=== PATIENT | male | born 1985 | race Caucasian/White ===

== ENCOUNTER 2019-03-18 19:45 | Emergency (ER) | payer BC, OTHER ==
--- NOTE | 2019-03-18 20:09 | EDM.PDOC ---
ED HPI GENERAL MEDICAL PROBLEM - General Chief Complaint: Body Fluid Exposure Stated Complaint: EXPOSURE Time Seen by Provider: 03/18/19 19:55 Source of Information: Reports: Patient History Limitations: Reports: No Limitations - History of Present Illness INITIAL COMMENTS - FREE TEXT/NARRATIVE: HISTORY AND PHYSICAL: History of present illness: Patient is a 34-year-old male who presents to the emergency room with concerns of exposure to body fluids. 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 He is concerned of communicable diseases. Tetanus has been updated within the last 5 years. Review of systems: As per history of present illness and below otherwise all systems reviewed and negative. Past medical history: As per history of present illness and as reviewed below otherwise noncontributory. Surgical history: As per history of present illness and as reviewed below otherwise noncontributory. Social history: See social history for further information Family history: As per history of present illness and as reviewed below otherwise noncontributory. Physical exam: General: Well-developed and well-nourished 34-year-old male. Alert and oriented. Nontoxic appearing and in no acute distress. HEENT: Atraumatic, normocephalic, pupils equal and reactive bilaterally, negative for conjunctival pallor or scleral icterus, mucous membranes moist, trachea midline. No drooling or trismus noted. No meningeal signs. No hot potato voice noted. Lungs: Clear to auscultation, breath sounds equal bilaterally, chest nontender. Heart: S1S2, regular rate and rhythm without overt murmur Abdomen: Soft, nondistended, nontender. Skin: Superficial 1 cm abrasion noted to the left forearm. Otherwise skin is intact, warm, dry. No lesions or rashes noted. Extremities: Atraumatic, moves all extremities per self without difficulty or deficits, negative for cords or calf pain. Neurovascular unremarkable. Neuro: Awake, alert, oriented. Cranial nerves II through XII unremarkable. Cerebellum unremarkable. Motor and sensory unremarkable throughout. Exam nonfocal. Notes: The abrasion was thoroughly cleansed with chlorhexidine. Labs were drawn. Counseling was provided to patient. He is aware that the labs are send outs we do not receive these results immediately. Supportive care measures were reviewed and discussed. Voices understanding and is agreeable to plan of care. Denies any further questions or concerns at this time. Diagnostics: Exposure panel Therapeutics: Wound care Prescription: None Impression: Body fluid exposure Plan: 1. Labs are a send out; we do not get results for 3-5 business days. 2. Follow up with your primary care provider. 3. Return to the ED as needed as discussed. Definitive disposition and diagnosis as appropriate pending reevaluation and review of above. - Related Data Allergies Allergy/AdvReac Type Severity Reaction Status Date / Time No Known Allergies Allergy Verified 03/18/19 20:07 Home Meds: Home Meds . [No Known Home Meds] 04/06/16 [History] Past Medical History - Past Health History Medical/Surgical History: Denies Medical/Surgical History Social & Family History - Family History Family Medical History: Noncontributory ED ROS GENERAL - Review of Systems Review Of Systems: ROS reveals no pertinent complaints other than HPI. ED EXAM, GENERAL - Physical Exam Exam: See Below (See dictation) Course - Vital Signs Last Recorded V/S: Last Vital Signs Temp 97.5 F 03/18/19 20:04 Pulse 93 03/18/19 20:04 Resp BP 128/90 03/18/19 20:04 Pulse Ox 96 03/18/19 20:04 - Orders/Labs/Meds Orders: Active Orders 24 hr Category Date Time Status Communication Order [RC] STAT Care 03/18/19 20:10 Ordered HEPATITIS B SURFACE AB QUANT [CHEM] Routine Lab 03/18/19 20:11 Ordered HEPATITIS B SURFACE AG [CHEM] Routine Lab 03/18/19 20:11 Ordered HEPATITIS C ANTIBODY [CHEM] Routine Lab 03/18/19 20:11 Ordered HIV12 AG/AB 4TH GEN [CHEM] Routine Lab 03/18/19 20:11 Ordered Departure - Departure Time of Disposition: 20:15 Disposition: Home, Self-Care 01 Clinical Impression: Exposure to blood or body fluid - Discharge Information Instructions: Body Fluid Exposure Information Referrals: Maxwell Tenorio MD [Primary Care Provider] - Forms: ED Department Discharge Additional Instructions: The following information is given to patients seen in the emergency department who are being discharged to home. This information is to outline your options for follow-up care. We provide all patients seen in our emergency department with a follow-up referral. The need for follow-up, as well as the timing and circumstances, are variable depending upon the specifics of your emergency department visit. If you don't have a primary care physician on staff, we will provide you with a referral. We always advise you to contact your personal physician following an emergency department visit to inform them of the circumstance of the visit and for follow-up with them and/or the need for any referrals to a consulting specialist. The emergency department will also refer you to a specialist when appropriate. This referral assures that you have the opportunity for follow-up care with a specialist. All of these measure are taken in an effort to provide you with optimal care, which includes your follow-up. Under all circumstances we always encourage you to contact your private physician who remains a resource for coordinating your care. When calling for follow-up care, please make the office aware that this follow-up is from your recent emergency room visit. If for any reason you are refused follow-up, please contact the [facility] Emergency Department at and asked to speak to the emergency department charge nurse. [facility] [address] [place] [id number] [place] [address] 1. Labs are a send out; we do not get results for 3-5 business days. 2. Follow up with your primary care provider. 3. Return to the ED as needed as discussed. - My Orders Last 24 Hours: My Active Orders 03/18/19 20:10 Communication Order [RC] STAT 03/18/19 20:11 HEPATITIS B SURFACE AB QUANT [CHEM] Routine HEPATITIS B SURFACE AG [CHEM] Routine HEPATITIS C ANTIBODY [CHEM] Routine HIV12 AG/AB 4TH GEN [CHEM] Routine - Assessment/Plan Last 24 Hours: My Active Orders 03/18/19 20:10 Communication Order [RC] STAT 03/18/19 20:11 HEPATITIS B SURFACE AB QUANT [CHEM] Routine HEPATITIS B SURFACE AG [CHEM] Routine HEPATITIS C ANTIBODY [CHEM] Routine HIV12 AG/AB 4TH GEN [CHEM] Routine
[2019-03-18 20:50] VITALS: BP 127/91
== END 2019-03-18 20:29 | disposition home or self-care (01) ==
LOC: MW.ED 19:45
DX: S50.812A Abrasion of left forearm, initial encounter (principal); Z77.21 Contact with and (suspected) exposure to potentially hazardous body fluids; W45.8XXA Other foreign body or object entering through skin, initial encounter
CPT/HCPCS: 36415; 86706; 86803; 87340; 87389; 99283

== ENCOUNTER 2019-10-10 21:40 | Emergency (ER) | payer OTHER ==
[2019-10-10 21:58] VITALS: BP 150/84; PULSE 101
--- NOTE | 2019-10-10 22:08 | EDM.PDOC ---
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 That he was exposed to blood on his left arm. Patient has no cuts or abrasions. Patient has no other complaints Onset: Today Duration: Hour(s):, Resolved Prior to Arrival Location: Reports: Upper Extremity, Left Quality: Reports: Other (None) Improves with: Reports: None Worsens with: Reports: None Associated Symptoms: Reports: No Other Symptoms - Related Data Allergies Allergy/AdvReac Type Severity Reaction Status Date / Time No Known Allergies Allergy Verified 10/10/19 21:58 Home Meds: Home Meds . [No Known Home Meds] 04/06/16 [History] Past Medical History - Past Health History Medical/Surgical History: Denies Medical/Surgical History Psychiatric History: Reports: None - Infectious Disease History Infectious Disease History: Reports: Chicken Pox Social & Family History - Family History Family Medical History: Noncontributory - Tobacco Use Smoking Status *Q: Never Smoker - Caffeine Use Caffeine Use: Reports: Coffee, Energy Drinks, Soda, Tea - Recreational Drug Use Recreational Drug Use: No ED ROS GENERAL - Review of Systems Review Of Systems: See Below Constitutional: Reports: No Symptoms HEENT: Reports: No Symptoms Respiratory: Reports: No Symptoms Cardiovascular: Reports: No Symptoms Endocrine: Reports: No Symptoms GI/Abdominal: Reports: No Symptoms : Reports: No Symptoms Musculoskeletal: Reports: No Symptoms Skin: Reports: Other (Exposure to blood) Neurological: Reports: No Symptoms Psychiatric: Reports: No Symptoms Hematologic/Lymphatic: Reports: No Symptoms Immunologic: Reports: No Symptoms ED EXAM, GENERAL - Physical Exam Exam: See Below Exam Limited By: No Limitations General Appearance: Alert, WD/WN, No Apparent Distress Eye Exam: Bilateral Eye: PERRL Ears: Normal External Exam, Normal Canal, Hearing Grossly Normal, Normal TMs Nose: Normal Inspection Throat/Mouth: Normal Inspection Head: Atraumatic Neck: Normal Inspection Respiratory/Chest: No Respiratory Distress Cardiovascular: Normal Peripheral Pulses GI/Abdominal: Normal Bowel Sounds Skin Exam: Warm, Dry, Intact, Normal Color, No Rash Course - Vital Signs Text/Narrative:: 34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 Patient stated his left arm was exposed to blood he has no abrasions swelling or pain to the arm. Patient has no evidence of scratches or swelling. Patient will be get labs for exposure of blood. Patient to follow- up with [employer] for workman's health Last Recorded V/S: Last Vital Signs Temp 97.1 F 10/10/19 21:50 Pulse 101 H 10/10/19 21:50 Resp 18 10/10/19 21:50 BP 150/84 H 10/10/19 21:50 Pulse Ox 96 10/10/19 21:50 - Orders/Labs/Meds Orders: Active Orders 24 hr Category Date Time Status HEPATITIS B SURFACE AB QUANT [CHEM] Routine Lab 10/10/19 21:58 Received HEPATITIS B SURFACE AG [CHEM] Routine Lab 10/10/19 21:58 Received HEPATITIS C ANTIBODY [CHEM] Routine Lab 10/10/19 21:58 Received HIV12 AG/AB 4TH GEN [CHEM] Routine Lab 10/10/19 21:58 Received Departure - Departure Time of Disposition: 22:10 Disposition: Home, Self-Care 01 Condition: Good Clinical Impression: Exposure to blood or body fluid - Discharge Information Referrals: Maxwell Tenorio MD [Primary Care Provider] - Sepsis Event Note - Evaluation Sepsis Screening Result: No Definite Risk - Focused Exam Vital Signs: Vital Signs Temp Pulse Resp BP Pulse Ox 10/10/19 21:50 97.1 F 101 H 18 150/84 H 96 Date Exam was Performed: 10/10/19 Time Exam was Performed: 22:03
== END 2019-10-10 22:20 | disposition home or self-care (01) ==
LOC: MW.ED 21:40
DX: Z77.21 Contact with and (suspected) exposure to potentially hazardous body fluids (principal)
CPT/HCPCS: 36415; 86706; 86803; 87340; 87389; 99282; 99283

== ENCOUNTER 2021-06-24 16:28 | Emergency (ER) | payer OTHER ==
--- NOTE | 2021-06-24 16:45 | EDM.PDOC ---
ED HPI GENERAL MEDICAL PROBLEM - General Chief Complaint: General Stated Complaint: EMS ARRIVAL Time Seen by Provider: 06/24/21 16:29 Source of Information: Reports: Patient History Limitations: Reports: No Limitations - History of Present Illness INITIAL COMMENTS - FREE TEXT/NARRATIVE: HISTORY AND PHYSICAL: History of present illness: Patient is a 36-year-old male who presents to the emergency room with complaints of inhalation exposure of cocaine. 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 Patient states during the arrest the arrested person had been bleeding from a wound, he had a fresh abrasion - concerned he was exposed to blood born pathogen. Patient states he feels slightly lightheaded like he has "drinking a bunch of caffeine". Patient denies any fever, chills, headache, change in vision, syncope or near syncope. Denies any chest pain, back pain, shortness of breath or cough. Denies any abdominal pain, nausea, vomiting, diarrhea, constipation or dysuria. Has not noted any blood in urine or stool. Patient has been eating and drinking appropriately. Review of systems: As per history of present illness and below otherwise all systems reviewed and negative. Past medical history: As per history of present illness and as reviewed below otherwise n oncontributory. Surgical history: As per history of present illness and as reviewed below otherwise noncontributory. Social history: See social history for further information Family history: As per history of present illness and as reviewed below otherwise noncontributory. Physical exam: General: Well developed and well nourished 36-year-old male. Alert and orientated x 3, answering questions appropriately.. Nontoxic in appearance and in no acute distress. Vital signs are stable and have been reviewed by me. Nursing notes were reviewed. HEENT: Atraumatic, normocephalic, pupils equal and reactive bilaterally, negative for conjunctival pallor or scleral icterus, mucous membranes moist, TMs normal bilaterally, throat clear, neck supple, nontender, trachea midline. No drooling or trismus noted. No meningeal signs. No hot potato voice noted. Lungs: Clear to auscultation bilaterally. No wheezes, rales, or rhonchi. Chest nontender. Normal work of breathing, no accessory muscles used. Heart: S1S2, regular rate and rhythm without overt murmur, gallops, or rubs. No JVD. No peripheral edema Abdomen: Soft, nondistended, nontender. Normoactive bowel sounds. Negative for masses or costovertebral tenderness. Skin: Abrasion to right forearm. Remaining skin is intact, warm, dry. No lesions or rashes noted. Hematologic: No petechiae or purpra. Mucosa appropriate color and normal nail bed color and refill. Extremities: Atraumatic, moves all extremities per self without difficulty or deficits, negative for cords or calf pain. Neurovascular unremarkable. Neuro: Awake, alert, oriented. Cranial nerves II through XII unremarkable. Cerebellum unremarkable. Motor and sensory unremarkable throughout. Exam nonfocal. Psychiatric: Mood and affect are appropriate. Normal thought process. Answering questions appropriately. Please note that the patient was seen and evaluated during the 2019 SARS-CoV-2 novel coronavirus pandemic period. Community viral transmission is ongoing at time of this encounter and the emergency department is operating under pandemic response procedures. Medical Decision Making: Patient is a 36-year-old male who presents to the emergency room as he had an e xposure to cocaine at work. He also has an abrasion to his right forearm and the person who was arrested had blood, concerned of blood exposure. He states he is slightly lightheaded, comparing it to having drank a lot of caffeine. States his tetanus is up-to-date. Wound care provided. We will do a blood- borne exposure panel. Patient declines wanting any other evaluation done today. Patient's physical exam is unremarkable with the exception of the abrasion. Vital signs are stable. I have talked with the patient about today's findings, in addition to providing specific details for plan of care. Reassessment at the time of disposition demonstrates that the patient is in no acute distress. The patient is stable for discharge, counseling was provided and we discussed in great detail signs and symptoms that would prompt them to return to the Emergency Department. Medication, follow up and supportive care measures were reviewed and discussed. Voices understanding and is agreeable to plan of care. Denies any further questions or concerns at this time. Diagnostics: Hepatitis panel, HIV Therapeutics: None Prescription: None Impression: Contact with and suspected exposures hazardous to health Blood/body fluid exposure Plan: 1. You were evaluated today on an emergent basis. Your labs take several hours to process, we will call you if there are any concerning findings. Avoid caffeine or any stimulants as this can worsen symptoms. Drink plenty of fluids. 2. You can alternate Tylenol and ibuprofen as needed for pain and fever management. 3. We encourage you to follow up with your primary care provider and/or recommended specialist in the next few days for re-evaluation and further care/management. 4. If your symptoms should worsen, new symptoms develop or any of the signs and symptoms we discussed should arise please return to the emergency room or call 911 (if needed). Definitive disposition and diagnosis as appropriate pending reevaluation and review of above. - Related Data Allergies Allergy/AdvReac Type Severity Reaction Status Date / Time No Known Allergies Allergy Verified 10/10/19 21:58 Home Meds: Home Meds . [No Known Home Meds] 04/06/16 [History] Past Medical History - Past Health History Medical/Surgical History: Denies Medical/Surgical History Psychiatric History: Reports: None - Infectious Disease History Infectious Disease History: Reports: Chicken Pox Social & Family History - Family History Family Medical History: No Pertinent Family History - Caffeine Use Caffeine Use: Reports: Coffee, Energy Drinks, Soda, Tea ED ROS GENERAL - Review of Systems Review Of Systems: Comprehensive ROS is negative, except as noted in HPI. ED EXAM, GENERAL - Physical Exam Exam: See Below (See dictation) Course - Vital Signs Last Recorded V/S: Last Vital Signs Temp 97.2 F 06/24/21 16:46 Pulse 92 06/24/21 16:46 Resp 20 06/24/21 16:46 BP 128/72 06/24/21 16:46 Pulse Ox 95 06/24/21 16:46 - Orders/Labs/Meds Orders: Active Orders 24 hr Category Date Time Status HEPATITIS B SURFACE AB QUANT [CHEM] Routine Lab 06/24/21 16:33 Ordered HEPATITIS B SURFACE AG [CHEM] Routine Lab 06/24/21 16:34 Ordered HEPATITIS C ANTIBODY [CHEM] Routine Lab 06/24/21 16:33 Ordered HIV12 AG/AB 4TH GEN [CHEM] Routine Lab 06/24/21 16:34 Ordered Departure - Departure Time of Disposition: 16:43 Disposition: Home, Self-Care 01 Clinical Impression: Exposure to blood or body fluid, Encounter for medical screening examination, Other contact with and (suspected) exposures hazardous to health - Discharge Information Forms: ED Department Discharge Additional Instructions: The following information is given to patients seen in the emergency department who are being discharged to home. This information is to outline your options for follow-up care. We provide all patients seen in our emergency department with a follow-up referral. The need for follow-up, as well as the timing and circumstances, are variable depending upon the specifics of your emergency department visit. If you don't have a primary care physician on staff, we will provide you with a referral. We always advise you to contact your personal physician following an emergency department visit to inform them of the circumstance of the visit and for follow-up with them and/or the need for any referrals to a consulting specialist. The emergency department will also refer you to a specialist when appropriate. This referral assures that you have the opportunity for follow-up care with a specialist. All of these measure are taken in an effort to provide you with optimal care, which includes your follow-up. Under all circumstances we always encourage you to contact your private physician who remains a resource for coordinating your care. When calling for follow-up care, please make the office aware that this follow-up is from your recent emergency room visit. If for any reason you are refused follow-up, please contact the [facility] Emergency Department at and asked to speak to the emergency department charge nurse. [facility] Primary [facility] [address] [place] [address] [place] [address] Thank you for choosing the [facility] emergency department in [place] for your medical needs today. It was a pleasure caring for you. Today you were seen in the emergency department for possible cocaine exposure. 1. You were evaluated today on an emergent basis. Your labs take several hours to process, we will call you if there are any concerning findings. Avoid caffeine or any stimulants as this can worsen symptoms. Drink plenty of fluids. 2. You can alternate Tylenol and ibuprofen as needed for pain and fever management. 3. We encourage you to follow up with your primary care provider and/or recommended specialist in the next few days for re-evaluation and further care/management. 4. If your symptoms should worsen, new symptoms develop or any of the signs and symptoms we discussed should arise please return to the emergency room or call 911 (if needed). Sepsis Event Note (ED) - Focused Exam Vital Signs: Vital Signs Temp Pulse Resp BP Pulse Ox 06/24/21 16:46 97.2 F 92 20 128/72 95 - My Orders Last 24 Hours: My Active Orders 06/24/21 16:33 HEPATITIS B SURFACE AB QUANT [CHEM] Routine HEPATITIS C ANTIBODY [CHEM] Routine 06/24/21 16:34 HEPATITIS B SURFACE AG [CHEM] Routine HIV12 AG/AB 4TH GEN [CHEM] Routine - Assessment/Plan Last 24 Hours: My Active Orders 06/24/21 16:33 HEPATITIS B SURFACE AB QUANT [CHEM] Routine HEPATITIS C ANTIBODY [CHEM] Routine 06/24/21 16:34 HEPATITIS B SURFACE AG [CHEM] Routine HIV12 AG/AB 4TH GEN [CHEM] Routine
[2021-06-24 20:19] VITALS: BP 136/75; PULSE 88
== END 2021-06-24 17:03 | disposition home or self-care (01) ==
LOC: MW.ED 16:28
DX: Z00.8 Encounter for other general examination (principal); Z77.098 Contact with and (suspected) exposure to other hazardous, chiefly nonmedicinal, chemicals
CPT/HCPCS: 36415; 86706; 86803; 87340; 87389; 99283